=== PATIENT | female | born 1985 ===

== ENCOUNTER 2017-05-07 02:21 | Emergency (ER) | payer SELFPAY | END 2017-05-07 03:05 | disposition left against medical advice (07) | LOC: ED 02:21 | DX: M79.672 Pain in left foot (principal); M79.671 Pain in right foot; R60.9 Edema, unspecified; Z53.21 Procedure and treatment not carried out due to patient leaving prior to being seen by health care provider ==

== ENCOUNTER 2017-07-05 23:25 | Outpatient (CLI) | payer MEDICAID ==
[2017-07-05 23:56] VITALS: BP 101/62
[2017-07-06] MEDS ORDERED: LACTATED RINGERS 1,000 ML IV ONE (00:07)
[2017-07-06 00:45] LABS: Bilirubin,Urine NEG (Negative); Blood,Urine NEG (Negative); Ketones,Urine TR mg/dL (Negative); Leukocyte Esterase,Urine NEG (Negative); Mucus,Urine 2+ /HPF; Nitrite,Urine NEG (Negative); Urobilinogen,Urine < 2.0 mg/dL (<2.0)
== END 2017-07-06 00:50 | disposition still patient (30) ==
LOC: EDSTATUS 23:42 → TRG 23:45
PROVIDERS: ATTEND Obstetrics & Gynecology
DX: O99.333 Smoking (tobacco) complicating pregnancy, third trimester (principal); O62.9 Abnormality of forces of labor, unspecified; O26.893 Other specified pregnancy related conditions, third trimester; R06.02 Shortness of breath; Z3A.33 33 weeks gestation of pregnancy
CPT/HCPCS: 59025; 81001